=== PATIENT | female | born 2000 | race Caucasian/White ===

== ENCOUNTER 2019-09-13 00:23 | Emergency (ER) | payer OTHER ==
[~2019-09-13] VITALS: Ht 172.7 cm; Wt 63.0 kg
[2019-09-13 00:28] VITALS: BP 110/69
--- NOTE | 2019-09-13 00:30 | NUR ---
PT ASSESSMENT COMPLETE. PT SEATED UPRIGHT IN BED. WILL CONTINUE TO MONITOR.
[2019-09-13 00:35] VITALS: BP 110/69
--- NOTE | 2019-09-13 00:41 | NUR ---
STREP SWAB COLLECTED AND GIVEN TO LAB.
== END 2019-09-13 01:05 | disposition home or self-care (01) ==
LOC: MED 00:23
DX: J02.9 Acute pharyngitis, unspecified (principal); K14.0 Glossitis
CPT/HCPCS: 87081; 99283